=== PATIENT | female | born 1950 | race Caucasian/White ===

== ENCOUNTER 2020-01-30 15:30 | Outpatient (CLI) | payer MEDICARE, SELFPAY ==
--- NOTE | ~2020-01-30 | MM_ITS ---
EXAMINATION: MM screening jose guadalupe BI w han HISTORY: Screening mammogram, family history of breast cancer in her sister. TECHNIQUE: Craniocaudal and mediolateral oblique 3-D tomosynthesis images were obtained and synthetic 2-D images were generated. CAD analysis was submitted and interpreted. COMPARISON: 07/31/2018, 05/15/2017, 05/12/2016 BREAST PARENCHYMAL COMPOSITION: There are scattered areas of fibroglandular density. FINDINGS: There is no evidence of suspicious mass, calcification, or architectural distortion to sugg est malignancy in either breast. There has been no suspicious interval change. IMPRESSION: 1. No mammographic evidence of malignancy. 2. Recommend routine screening mammography in one year. BI-RADS Category 1: Negative Reviewed, dictated and finalized at location A.
== END 2020-01-30 15:31 | disposition home or self-care (01) ==
LOC: ANHIMG 15:34
PROVIDERS: PCP Physician Assistant; Visit Provider Obstetrics & Gynecology
DX: Z12.31 Encounter for screening mammogram for malignant neoplasm of breast (principal)
CPT/HCPCS: 77063; 77067

== ENCOUNTER 2020-08-13 08:18 | Outpatient (CLI) | payer MEDICARE, SELFPAY ==
[2020-08-13 08:46] LABS: Hematocrit 38.6 % (37.0-47.0); Hemoglobin 12.7 g/dL (12.0-15.0); Mean Corpuscular HGB Conc 32.9 g/dl (32-36); Mean Corpuscular Hemoglobin 30.7 pg (26-34); Mean Corpuscular Volume 93.2 fl (80-100); Mean Platelet Volume 10.7 fl (7.4-10.4); Platelet Count Result 168 k/mm3 (150-375); Red Blood Count 4.14 M/mm3 (4.2-5.4); Red Cell Distribution Width 13.4 % (11.5-14.5); White Blood Count 5.8 K/mm3 (4.5-10.0)
[2020-08-13 09:37] LABS: Vitamin D 25 Hydroxy 31.5 ng/mL
[2020-08-13 10:15] LABS: Alanine Aminotransferase 15 U/L (4-35); Albumin Level 4.1 g/dL (3.5-5.1); Alkaline Phosphatase 101 U/L (38-126); Anion Gap 5 mmol/L (8-16); Aspartate Amino Transferase 23 U/L (14-36); Bilirubin,Total 0.4 mg/dL (0.2-1.3); Blood Urea Nitrogen 18 mg/dL (7-17); Carbon Dioxide 28 mmol/L (22-30); Chloride 107 mmol/L (98-107); Cholesterol 180 mg/dL (0-200); Estimated Glomerular Filt Rate > 60; Glucose 103 mg/dL (65-105); HDL Direct 54 mg/dL; Sodium 140 mmol/L (137-145); Triglycerides 81 mg/dL (<150)
[2020-08-13 10:26] LABS: LDL Cholesterol Direct 94 mg/dL
[2020-08-13 11:33] LABS: Folic Acid 17.7 ng/mL (2.76->20)
== END 2020-08-13 08:19 | disposition home or self-care (01) ==
PROVIDERS: PCP Physician Assistant; Visit Provider Physician Assistant
DX: I10 Essential (primary) hypertension (principal); R53.83 Other fatigue; E55.9 Vitamin D deficiency, unspecified; E66.9 Obesity, unspecified
CPT/HCPCS: 36415; 80053; 80061; 82306; 82607; 82746; 84443; 85027

== ENCOUNTER → 2020-10-01 09:38 | Outpatient (CLI) | payer MEDICARE, SELFPAY ==
[2020-10-02 19:00] LABS: SARS-CoV-2 RNA PCR Negative
== END ==
PROVIDERS: PCP Physician Assistant; Visit Provider Physician Assistant
DX: Z20.822 Contact with and (suspected) exposure to COVID-19 (principal); R68.89 Other general symptoms and signs
CPT/HCPCS: C9803; U0003; U0005

== ENCOUNTER 2021-02-01 10:25 | Outpatient (CLI) | payer MEDICARE, SELFPAY ==
--- NOTE | ~2021-02-01 | MM_ITS ---
EXAMINATION: MM screening jose guadalupe BI w han HISTORY: Screening mammogram, family history of breast cancer in her sister. TECHNIQUE: Craniocaudal and mediolateral oblique 3-D tomosynthesis images were obtained and synthetic 2-D images were generated. CAD analysis was submitted and interpreted. COMPARISON: 01/30/2020, 08/10/2018, 05/15/2017 BREAST PARENCHYMAL COMPOSITION: There are scattered areas of fibroglandular density. FINDINGS: There is no evidence of suspicious mass, calcification, or architectural distortion to sugg est malignancy in either breast. There has been no suspicious interval change. IMPRESSION: 1. No mammographic evidence of malignancy. 2. Recommend routine screening mammography in one year. BI-RADS Category 1: Negative Reviewed, dictated and finalized at location A.
== END 2021-02-01 10:26 | disposition home or self-care (01) ==
LOC: ANHIMG 10:31
PROVIDERS: PCP Physician Assistant; Visit Provider Obstetrics & Gynecology
DX: Z12.31 Encounter for screening mammogram for malignant neoplasm of breast (principal)
CPT/HCPCS: 77063; 77067

== ENCOUNTER 2021-06-10 10:14 | Outpatient (CLI) | payer MEDICARE, SELFPAY ==
[2021-06-10 11:16] LABS: Alanine Aminotransferase 15 U/L (4-35); Albumin Level 4.4 g/dL (3.5-5.1); Alkaline Phosphatase 108 U/L (38-126); Anion Gap 8 mmol/L (8-16); Aspartate Amino Transferase 21 U/L (14-36); Bilirubin,Total 0.3 mg/dL (0.2-1.3); Blood Urea Nitrogen 23 mg/dL (7-17); Calcium 9.4 mg/dL (8.4-10.2); Carbon Dioxide 29 mmol/L (22-30); Chloride 106 mmol/L (98-107); Estimated Glomerular Filt Rate > 60; Glucose 99 mg/dL (65-110); Potassium 4.4 mmol/L (3.4-5.0); Sodium 143 mmol/L (137-145)
== END 2021-06-10 10:15 | disposition home or self-care (01) ==
PROVIDERS: PCP Physician Assistant; Visit Provider Physician Assistant
DX: R21 Rash and other nonspecific skin eruption (principal)
CPT/HCPCS: 36415; 80053

== ENCOUNTER 2021-11-23 07:46 | Outpatient (CLI) | payer MEDICARE, SELFPAY ==
[2021-11-23 08:12] LABS: Hematocrit 33.7 % (37.0-47.0); Hemoglobin 10.8 g/dL (12.0-15.0); Mean Corpuscular Hemoglobin 30.3 pg (26-34); Mean Corpuscular Volume 94.4 fl (80-100); Mean Platelet Volume 9.9 fl (7.4-10.4); Platelet Count Result 245 k/mm3 (150-375); Red Blood Count 3.57 M/mm3 (4.2-5.4); Red Cell Distribution Width 13.2 % (11.5-14.5); White Blood Count 7.9 K/mm3 (4.5-10.0)
[2021-11-23 08:22] LABS: Alanine Aminotransferase 15 U/L (4-35); Albumin Level 4.3 g/dL (3.5-5.1); Alkaline Phosphatase 102 U/L (38-126); Anion Gap 6 mmol/L (8-16); Aspartate Amino Transferase 26 U/L (14-36); Bilirubin,Total 0.2 mg/dL (0.2-1.3); Blood Urea Nitrogen 17 mg/dL (7-17); Calcium 8.6 mg/dL (8.4-10.2); Carbon Dioxide 27 mmol/L (22-30); Chloride 106 mmol/L (98-107); Cholesterol 171 mg/dL (0-200); Estimated Glomerular Filt Rate > 60; Glucose 113 mg/dL (65-110); HDL Direct 46 mg/dL; Potassium 3.9 mmol/L (3.4-5.0); Sodium 139 mmol/L (137-145); Triglycerides 80 mg/dL (<150)
[2021-11-23 08:33] LABS: LDL Cholesterol Direct 80 mg/dL
[2021-11-23 09:30] LABS: Folic Acid 13.9 ng/mL (2.76->20)
[2021-11-23 10:09] LABS: Vitamin D 25 Hydroxy 62.6 ng/mL
== END 2021-11-23 07:47 | disposition home or self-care (01) ==
LOC: ANHLAB 07:49
PROVIDERS: PCP Physician Assistant; Visit Provider Physician Assistant
DX: E78.5 Hyperlipidemia, unspecified (principal); R53.83 Other fatigue; E55.9 Vitamin D deficiency, unspecified
CPT/HCPCS: 36415; 80053; 80061; 82306; 82607; 82746; 84443; 85027

== ENCOUNTER 2022-05-03 09:51 | Outpatient (CLI) | payer MEDICARE, SELFPAY ==
--- NOTE | ~2022-05-03 | MM_ITS ---
EXAMINATION: MM screening jose guadalupe BI w han HISTORY: Screening TECHNIQUE: Craniocaudal and mediolateral oblique 3-D tomosynthesis images were obtained and synthetic 2-D images were generated. CAD analysis was submitted and interpreted. COMPARISON: Comparison to multiple prior studies sequentially, with oldest reviewed study dated 04/23. BREAST PARENCHYMAL COMPOSITION: Breast composed of scattered areas of fibroglandular density FINDINGS: There is no evidence of suspicious mass, calcification, or architectural distortion to sugg est malignancy in either breast. There has been no suspicious interval change. IMPRESSION: 1. No mammographic evidence of malignancy. 2. Recommend routine screening mammography in one year. BI-RADS Category 1: Negative Reviewed, dictated and finalized at location A.
== END 2022-05-03 09:52 | disposition home or self-care (01) ==
PROVIDERS: PCP Physician Assistant; Visit Provider Obstetrics & Gynecology
DX: Z12.31 Encounter for screening mammogram for malignant neoplasm of breast (principal)
CPT/HCPCS: 77063; 77067

== ENCOUNTER 2022-08-25 12:35 | Outpatient (CLI) | payer MEDICARE, SELFPAY ==
--- NOTE | ~2022-08-25 | DEXA_ITS ---
Bone Density Report Name: KIRSTEN GONZALEZ Age: 71 Sex: Female Ethnicity: White Date of : 1950 Indication: postmenopausal; screening for osteoporosis; inflammatory bowel disease; history of glucocorticoids; prior fracture; hysterectomy; secondary osteoporosis; Referring Provider: BETHANY RENDON Study: Bone densitometry was performed. Exam Date: August 25, 2022 Accession number: [id number] Bone Density: Region BMD T-score Z-score Classification AP Spine(L1-L4) 1.007 -0.4 2.0 Normal Femoral Neck (Left) 0.681 -1.5 0.5 Osteopenia Total Hip (Left) 0.797 -1.2 0.5 Osteopenia Femoral Neck (Right) 0.690 -1.4 0.6 Osteopenia Total Hip (Right) 0.847 -0.8 0.9 Normal Total Hip Mean 0.822 -1.0 0.7 Normal World Health Organization criteria for BMD impression classify patients as: Normal (T-score at or above -1.0), Osteopenia (T-score between -1.0 and -2.5), or Osteoporosis (T-score at or below -2.5). 10-year Fracture Risk(1): Major Osteoporotic Fracture 25% Hip Fracture 5.0% Reported Risk Factors: [place] (), Neck BMD=0.681, BMI=30.2, previous fracture, glucocorticoids, secondary osteoporosis (1) FRAX(R) Version 3.08. Fracture probability calculated for an untreated patient. Fracture probability may be lower if the patient has received treatment. Clinical Information Provided by Patient: Has had a low trauma fracture Has taken Glucocorticoids Has secondary osteoporosis Has used the following medications: Calcium Has the following medical conditions: Inflammatory bowel diseases, Hysterectomy Patient maximum height was 67.5 Menopause Age: 41 Onset of menses at age 10 Number of children 2 Impression: The patient has low bone mass, based on the Left Femoral Neck T-score. The patient has an estimated ten-year risk of hip fracture of 5% and an estimated ten-year risk of major fracture of 25%, based on the WHO FRAX algorithm. The patient has risk factors, including: previous fracture, history of glucocorticoid therapy. Discussion: BONE DENSITY IS LOW AT ONE OR MORE SKELETAL SITES. THE PATIENT'S BMD AND CLINICAL RISK FACTORS CONTRIBUTE TO THIS PATIENT'S HIGH RISK OF FRACTURE. This patient's lowest T-score is low at one or more skeletal sites. It meets the World Health Organization's (WHO) criteria for ?low bone mass? (T-score between -1.0 and -2.5). The patient's 10-year risk of hip fracture and 10 year risk of a major osteoporotic fracture as calculated by FRAX exceeds the threshold where pharmacological therapy is recommended by the National Osteoporosis Foundation (NOF). However, all treatment decisions require clinical judgment and consideration of individual patient factors, including patient preferences, comorbidities, previous drug use, risk factors not captured in the
== END 2022-08-25 12:36 | disposition home or self-care (01) ==
PROVIDERS: PCP Physician Assistant; Visit Provider Physician Assistant
DX: M85.80 Other specified disorders of bone density and structure, unspecified site (principal); Z78.0 Asymptomatic menopausal state; Z90.710 Acquired absence of both cervix and uterus
CPT/HCPCS: 77080

== ENCOUNTER 2022-10-18 14:24 | Outpatient (CLI) | payer MEDICARE, SELFPAY ==
--- NOTE | ~2022-10-18 | XR_ITS ---
EXAMINATION:XR cervical spine 4-5V DATE: 10/18/2022 14:43 INDICATION: Neck pain TECHNIQUE: AP, lateral, lateral swimmers and odontoid views of the cervical spine are provided. COMPARISON: None FINDINGS: Alignment is normal. The odontoid process is intact. No fracture is identified. The vertebr al body heights are maintained. There is mild loss of intervertebral disc space height throughout the cervical spine. There is multilevel severe facet and uncovertebral joint osteoarthritis. Prevertebra l soft tissues are normal. IMPRESSION: 1. Moderate cervical spondylosis without acute findings. Reviewed, dictated and finalized at location F.
== END 2022-10-18 14:25 | disposition home or self-care (01) ==
PROVIDERS: PCP Physician Assistant; Visit Provider Physician Assistant
DX: M47.892 Other spondylosis, cervical region (principal)
CPT/HCPCS: 72050

== ENCOUNTER 2022-10-25 10:20 | Outpatient (CLI) | payer MEDICARE, SELFPAY ==
--- NOTE | ~2022-10-25 | US_ITS ---
EXAMINATION: US thyroid DATE: 10/25/2022 11:01 INDICATION: Disorder of thyroid, unspecified. TECHNIQUE: Multiple ultrasound images of the thyroid were obtained. COMPARISON: None. FINDINGS: The right thyroid lobe measures 3.7 x 1.7 x 1.3 cm. The left thyroid lobe measures 5.0 x 2.3 x 1.6 c m. The thyroid is diffusely heterogeneous and hypoechoic. Vascularity is increased. In the left thyr oid lobe, there is a 1.2 cm solid, hypoechoic, wider than tall nodule with smooth margin without echo genic foci (TI-RADS TR4). IMPRESSION: 1. 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 2. Left thyroid nodule. Consider thyroid ultrasound in one year. Reviewed, dictated and finalized at location A.
== END 2022-10-25 10:21 | disposition home or self-care (01) ==
LOC: ANHIMG 10:21
PROVIDERS: PCP Physician Assistant; Visit Provider Physician Assistant
DX: E07.9 Disorder of thyroid, unspecified (principal); E04.1 Nontoxic single thyroid nodule
CPT/HCPCS: 76536

== ENCOUNTER 2022-12-08 08:00 | Outpatient (CLI) | payer MEDICARE, SELFPAY ==
[2022-12-08 09:03] LABS: Basophils Percent Auto 0.6 % (0.2-1.2); Eosinophils Absolute Auto 0.1 K/mm3 (0-0.3); Eosinophils Percent Auto 2.3 % (0-4.4); Hemoglobin 11.2 g/dL (12.0-15.0); Immature Granulocyte Absolute 0.02 K/mm3 (0.00-0.031); Immature Granulocyte Percent A 0.4 % (0-0.5); Lymphocytes Absolute Auto 1.11 K/mm3 (0.9-3.2); Lymphocytes Percent Auto 23.6 % (18.3-44.2); Mean Corpuscular Hemoglobin 29.2 pg (26-34); Mean Corpuscular Volume 91.1 fl (80-100); Mean Platelet Volume 10.8 fl (7.4-10.4); Monocytes Absolute Auto 0.4 K/mm3 (0.1-0.6); Monocytes Percent Auto 9.4 % (2.6-8.5); Neutrophils Percent Auto 63.7 % (45.5-73.1); Platelet Count Result 172 k/mm3 (150-375); Red Blood Count 3.84 M/mm3 (4.2-5.4); Red Cell Distribution Width 14.9 % (11.5-14.5); White Blood Count 4.7 K/mm3 (4.5-10.0)
[2022-12-08 09:20] LABS: Alanine Aminotransferase 22 U/L (6-35); Albumin Level 4.4 g/dL (3.5-5.1); Alkaline Phosphatase 109 U/L (38-126); Anion Gap 7 mmol/L (8-16); Aspartate Amino Transferase 29 U/L (14-36); Bilirubin,Total 0.5 mg/dL (0.2-1.3); Blood Urea Nitrogen 18 mg/dL (7-17); Calcium 8.7 mg/dL (8.4-10.2); Carbon Dioxide 29 mmol/L (22-30); Chloride 104 mmol/L (98-107); Cholesterol 194 mg/dL (0-200); Estimated Glomerular Filt Rate > 60; Glucose 101 mg/dL (65-110); HDL Direct 59 mg/dL; Potassium 3.8 mmol/L (3.4-5.0); Sodium 140 mmol/L (137-145); Triglycerides 99 mg/dL (<150)
[2022-12-08 09:31] LABS: LDL Cholesterol Direct 98 mg/dL
[2022-12-08 09:31] LABS: Rheumatoid Factor < 12.0 IU/ML (<12)
[2022-12-08 10:22] LABS: Folic Acid 9.9 ng/mL (2.76->20)
[2022-12-08 10:52] LABS: Erythrocyte Sedimentation Rate 37 mm/hr (0-20)
== END 2022-12-08 08:01 | disposition home or self-care (01) ==
PROVIDERS: PCP Physician Assistant; Visit Provider Physician Assistant
DX: M25.50 Pain in unspecified joint (principal); R53.83 Other fatigue; E78.5 Hyperlipidemia, unspecified; E55.9 Vitamin D deficiency, unspecified
CPT/HCPCS: 36415; 80053; 80061; 82306; 82607; 82746; 84443; 85025; 85652; 86038; 86430

== ENCOUNTER 2023-01-11 15:29 | Outpatient (CLI) | payer MEDICARE, SELFPAY ==
[2023-01-11 16:32] LABS: Alanine Aminotransferase 459 U/L (6-35); Aspartate Amino Transferase 293 U/L (14-36)
== END 2023-01-11 15:30 | disposition home or self-care (01) ==
PROVIDERS: PCP Physician Assistant; Visit Provider Podiatrist Foot & Ankle Surgery
DX: B35.1 Tinea unguium (principal)
CPT/HCPCS: 36415; 84450; 84460

== ENCOUNTER 2023-01-12 09:03 | Outpatient (CLI) | payer MEDICARE, SELFPAY ==
--- NOTE | ~2023-01-12 | NM_ITS ---
EXAMINATION: NM matilda stress w perfusion DATE: 01/12/2023 11:29 INDICATION: Dyspnea on exertion. Fatigue. TECHNIQUE: Rest images were obtained following intravenous administration of 10.5 mCi Tc99m tetrofosm in (Myoview). The patient was infused intravenously with Lexiscan (Regadenoson). Then, 34.3 mCi Tc99m tetrofosmin (Myoview) was administered intravenously, and stress images were obtained in supine posi tion. Additional repeat post stress images were obtained in the prone position. Data was reconstructe d into short axis and horizontal and vertical long axis SPECT images. Gated SPECT images were also ob tained. COMPARISON: None. FINDINGS: Small region of mild reversible decreased perfusion at the junction of the apical, apical a nterior and apical septal segments on prone imaging. No definitive perfusion defects on the rest imag ing to suggest infarct. There is normal left ventricular chamber size, wall motion and ejection fract ion. Left ventricular ejection fraction measures 61%. IMPRESSION: 1. Small region of mild reversible ischemia at the junction of the apical, apical anterior and apical septal segments. 2. Left ventricular ejection fraction measuring 61%. Reviewed, dictated and finalized at location A. IMPRESSION: 1. Small region of mild reversible ischemia at the junction of the apical, apic al anterior and apical septal segments. 2. Left ventricular ejection fraction measuring 61%.
--- NOTE | 2023-01-12 09:44 | EST_ITS ---
Patient Info Name: Krystin Dowd Age: 72 years : 1950 Gender: Female Ht: 67 in Wt: 185 lbs BSA: 2.01 m2 HR: 58 bpm BP: 153 / 74 mmHg Exam Date: 01/12/2023 10:10 AM Exam Location: [facility] Stress Patient Status: Outpatient Admit Date: 01/12/2023 Staff Ordering Physician: Fernando Headley PA-C Attending Provider: Fernando Headley PA-C Exercise Technologist: Ana Carnes CT Exercise Physician: Ramón Ceron DO Exam Type: CA stress matilda w NM Study Info Indications R07.89 - Other chest pain A regadenoson stress test was performed. Summary 1. 1. Abnormal lexiscan stress test for ischemic ST changes by ECG criteria. 2. 2. Baseline hypertension. 3. 3. Nuclear scan to follow and will be reported separately. Please correlate with it. 4. 4. Patient informed of the above results. Protocol: Lexiscan Stress ECG Details Stage: REST Duration (min): 1 min : 19 sec HR (bpm): 58 SBP (mmHg): 153 DBP (mmHg): 74 Stage: REST Duration (min): 6 min : 2 sec HR (bpm): 58 SBP (mmHg): 153 DBP (mmHg): 74 Stage: STAGE 1 Duration (min): 1 min : 0 sec HR (bpm): 89 SBP (mmHg): 153 DBP (mmHg): 56 Stage: RECOVERY Duration (min): 1 min : 0 sec HR (bpm): 99 SBP (mmHg): 153 DBP (mmHg): 56 Stage: RECOVERY Duration (min): 2 min : 0 sec HR (bpm): 101 SBP (mmHg): 153 DBP (mmHg): 56 Stage: RECOVERY Duration (min): 3 min : 0 sec HR (bpm): 97 SBP (mmHg): 172 DBP (mmHg): 64 Stage: RECOVERY Duration (min): 3 min : 7 sec HR (bpm): 96 SBP (mmHg): 172 DBP (mmHg): 64 Rest HR: 58 bpm Peak HR: 102 bpm Rest Sys BP: 153 mmHg Peak Sys BP: 172 mmHg Max Pred HR: 146 bpm % Max Pred HR: 70 % Target HR: 124 bpm Max RPP: 17,544 bpm*mmHg Termination Reason: Completed protocol Cardiac Symptoms: Shortness of breath, Stomach discomfort Total Time: 1 min : 0 sec Rest Pulido BP: 74 mmHg Peak Pulido BP: 64 mmHg Total Dose: 0.4 mg Resting ECG Sinus rhythm. Stress ECG Sagging [address] depression in leads I, avL, V3-V6. Arrhythmias None. Report Signatures
== END 2023-01-12 09:04 | disposition home or self-care (01) ==
PROVIDERS: PCP Physician Assistant; Visit Provider Physician Assistant
DX: R06.02 Shortness of breath (principal); R53.83 Other fatigue
CPT/HCPCS: 78452; 93017; A9502; J2785

== ENCOUNTER 2023-01-13 08:09 | Outpatient (CLI) | payer MEDICARE, SELFPAY ==
[2023-01-13 09:09] LABS: Alanine Aminotransferase 458 U/L (6-35); Aspartate Amino Transferase 273 U/L (14-36)
== END 2023-01-13 08:10 | disposition home or self-care (01) ==
PROVIDERS: PCP Physician Assistant; Visit Provider Podiatrist Foot & Ankle Surgery
DX: B35.1 Tinea unguium (principal)
CPT/HCPCS: 36415; 84450; 84460

== ENCOUNTER 2023-01-31 10:26 | Outpatient (CLI) | payer MEDICARE, SELFPAY ==
--- NOTE | 2023-01-31 10:48 | ECG_ITS ---
Measurements Intervals Greer Rate: 57 P: 41 NJ: 165 QRS: 29 QRSD: 101 T: 70 QT: 447 QTc: 438 Interpretive Statements SINUS BRADYCARDIA BASELINE WANDER- I, II, AVR, AVL, AVF, V1-V2 BORDERLINE ECG NO PREVIOUS ECG AVAILABLE FOR COMPARISON Electronically Signed On 01-31-2023 11:43:17 CDT by Ramón Ceron D.O.
== END 2023-01-31 10:27 | disposition home or self-care (01) ==
PROVIDERS: PCP Physician Assistant; Visit Provider Internal Medicine Cardiovascular Disease
DX: R06.09 Other forms of dyspnea (principal); R94.31 Abnormal electrocardiogram [ECG] [EKG]
CPT/HCPCS: 93005

== ENCOUNTER 2023-02-06 06:33 | Outpatient (CLI) | payer MEDICARE, SELFPAY ==
--- NOTE | ~2023-02-06 | CT_ITS ---
CT of the Abdomen and Pelvis: Indication: Abnormal LFTs Technique: 2.5 mm axial scans were obtained through the abdomen and pelvis following intravenous adm inistration of 100 cc of Omnipaque 350. Dose reduction technique was used on this scan by utilizing a utomated exposure control and iterative reconstruction technique. The dose-length product (DLP) was 8 74.56 mGy-cm. Findings: Scans through the lung bases are unremarkable. The liver, spleen, pancreas, adrenals and kidneys are within normal limits. Cholecystectomy clips are present. There are atherosclerotic calcifications of the aorta. No lymphadenopathy. No bowel obstruction or bowel wall thickening. There is no evidence to suggest acute appendicitis. Images through the pelvis were performed. Urinary bladder unremarkable. No pelvic mass identified. No ascites. Impression: No significant abnormalities seen. Reviewed, dictated and finalized at [facility]. Impression: No significant abnormalities seen.
[2023-02-06 07:20] LABS: Estimated Glomerular Filt Rate 54
== END 2023-02-06 06:34 | disposition home or self-care (01) ==
PROVIDERS: PCP Physician Assistant; Referring Provider Podiatrist Foot & Ankle Surgery; Visit Provider Physician Assistant
DX: R74.01 Elevation of levels of liver transaminase levels (principal)
CPT/HCPCS: 74177; Q9967

== ENCOUNTER 2023-02-08 07:39 | Outpatient (CLI) | payer MEDICARE, SELFPAY ==
[2023-02-08 08:09] LABS: Alanine Aminotransferase 277 U/L (6-35); Albumin Level 4.4 g/dL (3.5-5.1); Alkaline Phosphatase 125 U/L (38-126); Anion Gap 4 mmol/L (8-16); Aspartate Amino Transferase 144 U/L (14-36); Bilirubin,Total 0.4 mg/dL (0.2-1.3); Blood Urea Nitrogen 21 mg/dL (7-17); Calcium 9.2 mg/dL (8.4-10.2); Carbon Dioxide 31 mmol/L (22-30); Chloride 106 mmol/L (98-107); Estimated Glomerular Filt Rate > 60; Glucose 103 mg/dL (65-110); Potassium 4.4 mmol/L (3.4-5.0); Sodium 141 mmol/L (137-145)
== END 2023-02-08 07:40 | disposition home or self-care (01) ==
PROVIDERS: PCP Physician Assistant; Visit Provider Physician Assistant
DX: R74.01 Elevation of levels of liver transaminase levels (principal)
CPT/HCPCS: 36415; 80053

== ENCOUNTER 2023-03-28 15:10 | Outpatient (CLI) | payer MEDICARE, SELFPAY ==
[2023-03-28 16:19] LABS: Hematocrit 36.1 % (37.0-47.0); Hemoglobin 11.9 g/dL (12.0-15.0); Mean Corpuscular Hemoglobin 30.4 pg (26-34); Mean Corpuscular Volume 92.1 fl (80-100); Mean Platelet Volume 10.9 fl (7.4-10.4); Platelet Count Result 159 k/mm3 (150-375); Red Blood Count 3.92 M/mm3 (4.2-5.4); Red Cell Distribution Width 13.8 % (11.5-14.5); White Blood Count 5.9 K/mm3 (4.5-10.0)
[2023-03-28 16:35] LABS: INR 1.1; Prothrombin Time 14.3 Seconds (11.1-14.7)
[2023-03-28 16:41] LABS: Alanine Aminotransferase 45 U/L (6-35); Albumin Level 4.4 g/dL (3.5-5.1); Alkaline Phosphatase 122 U/L (38-126); Anion Gap 9 mmol/L (8-16); Aspartate Amino Transferase 38 U/L (14-36); Bilirubin,Total 0.4 mg/dL (0.2-1.3); Blood Urea Nitrogen 22 mg/dL (7-17); CRP < 0.5 mg/dL (<1.0); Calcium 8.9 mg/dL (8.4-10.2); Carbon Dioxide 26 mmol/L (22-30); Chloride 103 mmol/L (98-107); Creatine Kinase 57 U/L (30-135); Estimated Glomerular Filt Rate > 60; Glucose 102 mg/dL (65-110); Potassium 3.9 mmol/L (3.4-5.0); Sodium 138 mmol/L (137-145)
[2023-03-28 16:53] LABS: Erythrocyte Sedimentation Rate 31 mm/hr (0-20); Iron 83 ug/dL (37-170)
[2023-03-28 17:03] LABS: Percent Iron Saturation 24 % (20-50)
[2023-03-28 20:08] LABS: Hepatitis B Surface Antigen Negative (Negative)
[2023-03-28 20:13] LABS: HAV RESULT Negative (Negative); Hepatitis B Core IgM Result Negative (Negative)
[2023-03-28 20:25] LABS: Hepatitis C Virus Antibody Negative (Negative)
[2023-04-01 06:05] LABS: GGT 17 U/L (3-65)
[2023-04-01 09:44] LABS: Ceruloplasmin 33 mg/dL (18-53)
[2023-04-01 21:51] LABS: Actin Antibody (IgG) <20 U (<20)
[2023-04-01 22:03] LABS: LKM 1 Antibody <=20.0 U (<=20.0)
[2023-04-03 11:26] LABS: Mitochondrial (M2) Ab (IgG) <=20.0 U (<=20.0)
== END 2023-03-28 15:11 | disposition home or self-care (01) ==
PROVIDERS: PCP Physician Assistant; Visit Provider Nurse Practitioner
DX: R74.01 Elevation of levels of liver transaminase levels (principal); I25.10 Atherosclerotic heart disease of native coronary artery without angina pectoris
CPT/HCPCS: 36415; 80053; 80074; 82104; 82390; 82550; 82728; 82977; 83520; 83540; 83550; 85027; 85610; 85652; 86038; 86039; 86140; 86364; 86376

== ENCOUNTER 2023-04-27 07:28 | Outpatient (CLI) | payer MEDICARE, SELFPAY ==
--- NOTE | ~2023-04-27 | US_ITS ---
US abdomen complete DATE: 04/27/2023 08:25 INDICATION: Elevated liver transaminase TECHNIQUE: Real-time imaging and Doppler analysis of the abdomen COMPARISON: 02/06/2023 CT abdomen pelvis FINDINGS: The gallbladder is surgically absent. Normal hepatopedal portal venous flow direction. No hepatic or pancreatic space-occupying mass lesion is evident. The common bile duct measures 5.7 mm, within normal limits. The abdominal aorta is of normal caliber. Inferior vena cava is unremarkable. No renal mass lesion or hydronephrosis. Splenic size is within normal range. IMPRESSION: Status post cholecystectomy Reviewed, dictated and finalized at Location A. Reviewed, dictated and finalized at location L. IMPRESSION: Status post cholecystectomy
== END 2023-04-27 07:29 | disposition home or self-care (01) ==
LOC: ANHIMG 07:33
PROVIDERS: PCP Physician Assistant; Visit Provider Nurse Practitioner
DX: R74.01 Elevation of levels of liver transaminase levels (principal); Z90.49 Acquired absence of other specified parts of digestive tract
CPT/HCPCS: 76700

== ENCOUNTER 2023-05-05 10:47 | Outpatient (CLI) | payer MEDICARE, SELFPAY ==
[2023-05-05 11:19] LABS: Alanine Aminotransferase 25 U/L (6-35); Albumin Level 4.2 g/dL (3.5-5.1); Alkaline Phosphatase 105 U/L (38-126); Anion Gap 4 mmol/L (8-16); Aspartate Amino Transferase 31 U/L (14-36); Bilirubin,Total 0.5 mg/dL (0.2-1.3); Blood Urea Nitrogen 20 mg/dL (7-17); Calcium 8.9 mg/dL (8.4-10.2); Carbon Dioxide 29 mmol/L (22-30); Chloride 107 mmol/L (98-107); Cholesterol 166 mg/dL (0-200); Estimated Glomerular Filt Rate > 60; Glucose 105 mg/dL (65-110); HDL Direct 61 mg/dL; Potassium 4.2 mmol/L (3.4-5.0); Sodium 140 mmol/L (137-145); Triglycerides 67 mg/dL (<150)
[2023-05-05 11:29] LABS: LDL Cholesterol Direct 72 mg/dL
== END 2023-05-05 10:48 | disposition home or self-care (01) ==
PROVIDERS: PCP Physician Assistant; Visit Provider Internal Medicine Cardiovascular Disease
DX: E78.5 Hyperlipidemia, unspecified (principal)
CPT/HCPCS: 36415; 80053; 80061

== ENCOUNTER 2023-07-10 09:45 | Outpatient (CLI) | payer MEDICARE, SELFPAY ==
[2023-07-10 10:26] LABS: Anion Gap 6 mmol/L (8-16); Blood Urea Nitrogen 30 mg/dL (7-17); Calcium 9.3 mg/dL (8.4-10.2); Carbon Dioxide 27 mmol/L (22-30); Chloride 110 mmol/L (98-107); Estimated Glomerular Filt Rate > 60; Glucose 104 mg/dL (65-110); Magnesium 2.3 mg/dL (1.6-2.3); Potassium 4.2 mmol/L (3.4-5.0); Sodium 143 mmol/L (137-145)
== END 2023-07-10 09:46 | disposition home or self-care (01) ==
PROVIDERS: PCP Physician Assistant; Visit Provider Internal Medicine Cardiovascular Disease
DX: R60.0 Localized edema (principal)
CPT/HCPCS: 36415; 80048; 83735

== ENCOUNTER 2023-11-02 08:30 | Outpatient (RCR) | payer MEDICARE, SELFPAY | END 2023-11-02 23:59 | disposition home or self-care (01) | LOC: ANHCPREHAB 08:30 | PROVIDERS: PCP Physician Assistant; Visit Provider Internal Medicine Cardiovascular Disease | DX: Z95.1 Presence of aortocoronary bypass graft (principal) | CPT/HCPCS: 36415; 80048; 83735; 93798 ==

== ENCOUNTER 2023-11-09 08:30 | Outpatient (RCR) | payer MEDICARE, SELFPAY | END 2024-02-19 07:57 | disposition home or self-care (01) | LOC: ANHCPREHAB 08:30 | PROVIDERS: PCP Physician Assistant; Visit Provider Internal Medicine Cardiovascular Disease | DX: Z95.1 Presence of aortocoronary bypass graft (principal) | CPT/HCPCS: 93798 ==

== ENCOUNTER 2023-12-16 07:55 | Outpatient (CLI) | payer MEDICARE, SELFPAY ==
[2023-12-16 08:48] LABS: Alanine Aminotransferase 17 U/L (6-35); Albumin Level 4.3 g/dL (3.5-5.1); Alkaline Phosphatase 129 U/L (38-126); Anion Gap 7 mmol/L (4-12); Aspartate Amino Transferase 25 U/L (14-36); Bilirubin,Total 0.5 mg/dL (0.2-1.3); Blood Urea Nitrogen 23 mg/dL (7-17); Carbon Dioxide 28 mmol/L (22-30); Chloride 106 mmol/L (98-107); Estimated Glomerular Filt Rate 54; Glucose 121 mg/dL (65-110); Potassium 4.2 mmol/L (3.4-5.0); Sodium 141 mmol/L (137-145)
== END 2023-12-16 07:56 | disposition home or self-care (01) ==
LOC: ANHLAB 07:57
PROVIDERS: PCP Physician Assistant; Visit Provider Physician Assistant
DX: R74.01 Elevation of levels of liver transaminase levels (principal)
CPT/HCPCS: 36415; 80053

== ENCOUNTER 2024-04-05 10:54 | Outpatient (CLI) | payer MEDICARE, SELFPAY ==
--- NOTE | ~2024-04-05 | XR_ITS ---
Clinical Indication: Chronic cough PA and lateral views of the chest: Comparison: 07/02/2018 Findings: The lungs are clear, without evidence of focal consolidation or pleural effusion. Cardiome diastinal silhouette is stable. Bones and soft tissues are unremarkable. Impression: Clear lungs. Reviewed, dictated and finalized at location . Impression: Clear lungs.
[2024-04-05 11:08] LABS: Basophils Percent Auto 0.7 % (0.2-1.2); Eosinophils Absolute Auto 0.1 K/mm3 (0-0.3); Eosinophils Percent Auto 2.1 % (0-4.4); Hemoglobin 10.9 g/dL (12.0-15.0); Immature Granulocyte Absolute 0.01 K/mm3 (0.00-0.031); Immature Granulocyte Percent A 0.2 % (0-0.5); Lymphocytes Absolute Auto 1.43 K/mm3 (0.9-3.2); Lymphocytes Percent Auto 25.6 % (18.3-44.2); Mean Corpuscular HGB Conc 32.1 g/dl (32-36); Mean Corpuscular Hemoglobin 30.2 pg (26-34); Mean Corpuscular Volume 94.2 fl (80-100); Mean Platelet Volume 10.4 fl (7.4-10.4); Monocytes Absolute Auto 0.6 K/mm3 (0.1-0.6); Neutrophils Absolute Auto 3.4 K/mm3 (1.3-6.7); Neutrophils Percent Auto 61.4 % (45.5-73.1); Platelet Count Result 158 k/mm3 (150-375); Red Blood Count 3.61 M/mm3 (4.2-5.4); Red Cell Distribution Width 13.7 % (11.5-14.5); White Blood Count 5.6 K/mm3 (4.5-10.0)
== END 2024-04-05 10:55 | disposition home or self-care (01) ==
LOC: ANHLAB 10:57
PROVIDERS: PCP Physician Assistant; Visit Provider Nurse Practitioner Family
DX: R05.3 Chronic cough (principal)
CPT/HCPCS: 36415; 71046; 85025

== ENCOUNTER 2024-04-15 09:12 | Outpatient (CLI) | payer MEDICARE, SELFPAY ==
--- NOTE | 2024-04-15 11:47 | WPDPFTINT ---
PFT Procedure Performed PFT Procedure Performed Spirometry with Pre/Post Bronchodilator Plethysmography (Lung Vol) Diffusing Cap (DLCO) Flow Vol Loop PFT Interpretation This is a pulmonary function test with pre and post-bronchodilator spirometry, plethysmography and diffusing capacity. The test was performed and results interpreted in accordance with the 2019 and 2005 ATS/ERS Task Force guidelines respectively using the Global Lung Function Initiative-2012 reference equations. Patient demonstrated good effort and cooperation. Reproducibility criteria were met. The quality of the pre bronchodilator spirometry maneuver was Grade A and post bronchodilator spirometry maneuver was Grade A. Findings: Spirometry: The contour the inspiratory and expiratory flow tracing are normal. The pre bronchodilator FVC is 2.77 L, 93% predicted. The pre bronchodilator FEV1 is 2.05 L, 90% predicted. The pre bronchodilator FEV1: FVC ratio 74%. The post bronchodilator FVC is 2.88 L, representing a 4% increase. The post bronchodilator FEV1 is 2.26 L, representing a 10% increase. The post bronchodilator FEV1: FVC ratio 79%. Plethysmography: The total lung capacity is 4.67 L, 85% predicted. The functional residual capacity is 2.38 L, 75% predicted. The residual volume is 1.83 L, 75% predicted. Diffusing capacity: The diffusing capacity unadjusted for hemoglobin and carboxyhemoglobin is 13.4, 63% predicted. The diffusing capacity adjusted for alveolar volume is 3.28, 81% predicted. Impression: The spirometry is normal without evidence of an obstructive abnormality. There is no significant improvement after inhaling a single dose of albuterol. The lung volumes are normal. The diffusing capacity unadjusted for hemoglobin and carboxyhemoglobin is mildly decreased and normalizes when adjusted for alveolar volume. There are no prior studies for comparison
== END 2024-04-15 09:13 | disposition home or self-care (01) ==
PROVIDERS: PCP Physician Assistant; Visit Provider Nurse Practitioner Family
DX: R05.3 Chronic cough (principal)
CPT/HCPCS: 94060; 94726; 94729

== ENCOUNTER 2024-04-17 16:08 | Outpatient (CLI) | payer MEDICARE, SELFPAY ==
[2024-04-19 13:18] LABS: Alternaria alternata IgE <0.10 kU/L; Alternaria alternata IgE Class 0; Aspergillus fumigatus IgE <0.10 kU/L; Bermuda Grass (G2) IgE <0.10 kU/L; Bermuda Grass (G2) IgE Class 0; Cat Dander IgE <0.10 kU/L; Cat Dander IgE Class 0; Cladosporium herbarum IgE <0.10 kU/L; Cladosporium herbarum IgE Clas 0; Cockroach IgE <0.10 kU/L; Cockroach IgE Clas 0; Common Ragweed IgE Class 0; Cottonwood IgE <0.10 kU/L; Dermatophagoides Farinae Class 0; Dermatophagoides Pterony Class 0; Dermatophagoides Pteronyssinus <0.10 kU/L; Dog Dander IgE <0.10 kU/L; Elm (T8) IgE <0.10 kU/L; Elm (T8) IgE Class 0; Hickory/Pecan IgE <0.10 kU/L; Hickory/Pecan IgE Class 0; Immunoglobulin E 57 kU/L (<OR=114); Maple Box Elder IgE Class 0; Mountain Cedar IgE <0.10 kU/L; Mountain Cedar IgE Class 0; Mouse Urine Proteins IgE <0.10 kU/L; Mouse Urine Proteins IgE Class 0; Oak IgE <0.10 kU/L; Peniciliium notatum class 0; Penicillium notatum (M1) IgE <0.10 kU/L; Rough Marsh <0.10 kU/L; Rough Marsh Elder Class 0; Rough Pigweed (W14) IgE <0.10 kU/L; Rough Pigweed (W14) IgE Class 0; Russian Thistle <0.10 kU/L; Sycamore IgE <0.10 kU/L; Sycamore IgE Class 0; Timothy Grass IgE <0.10 kU/L; Timothy Grass IgE Class 0; Walnut Tree IgE <0.10 kU/L; Walnut Tree IgE Class 0; White Ash IgE Class 0; White Mulberry IgE <0.10 kU/L; White Mulberry IgE Class 0
== END 2024-04-17 16:09 | disposition home or self-care (01) ==
LOC: ANHLAB 16:12
PROVIDERS: PCP Physician Assistant; Visit Provider Nurse Practitioner Family
DX: R05.3 Chronic cough (principal); J30.9 Allergic rhinitis, unspecified
CPT/HCPCS: 36415; 82785; 86003

== ENCOUNTER 2024-06-07 07:39 | Outpatient (CLI) | payer MEDICARE, SELFPAY ==
--- NOTE | ~2024-06-07 | MM_ITS ---
EXAMINATION: MM screening jose guadalupe BI w han HISTORY: Screening mammogram, family history of breast cancer in her sister. TECHNIQUE: Craniocaudal and mediolateral oblique 3-D tomosynthesis images were obtained and synthetic 2-D images were generated. CAD analysis was submitted and interpreted. COMPARISON: 05/03/2022, 02/01/2021, 01/30/2020, 07/31/2018 BREAST PARENCHYMAL COMPOSITION:Not Dense. There are scattered areas of fibroglandular density. FINDINGS: No suspicious mass, calcification, or architectural distortion are identified in either ester ast to suggest malignancy. There has been no suspicious interval change. IMPRESSION: No mammographic evidence of malignancy. Recommend routine screening mammography in one year. BI-RADS Category 1: Negative Reviewed, dictated and finalized at location . [employer]
== END 2024-06-07 07:40 | disposition home or self-care (01) ==
LOC: ANHIMG 07:41
PROVIDERS: PCP Physician Assistant; Visit Provider Physician Assistant
DX: Z12.31 Encounter for screening mammogram for malignant neoplasm of breast (principal)
CPT/HCPCS: 77063; 77067

== ENCOUNTER 2024-09-22 08:34 | Emergency (ER) | payer MEDICARE, SELFPAY ==
[2024-09-22 08:46] VITALS: BP 167/62; PULSE 73; RESP 20; TEMP 36.4; O2SAT 100
[2024-09-22 09:07] LABS: Basophils Percent Auto 0.6 % (0.2-1.2); Eosinophils Absolute Auto 0.2 K/mm3 (0-0.3); Eosinophils Percent Auto 3.7 % (0-4.4); Hematocrit 32.7 % (37.0-47.0); Hemoglobin 10.6 g/dL (12.0-15.0); Immature Granulocyte Absolute 0.02 K/mm3 (0.00-0.031); Immature Granulocyte Percent A 0.3 % (0-0.5); Lymphocytes Absolute Auto 1.62 K/mm3 (0.9-3.2); Lymphocytes Percent Auto 25.3 % (18.3-44.2); Mean Corpuscular HGB Conc 32.4 g/dl (32-36); Mean Corpuscular Hemoglobin 29.5 pg (26-34); Mean Corpuscular Volume 91.1 fl (80-100); Mean Platelet Volume 11.2 fl (7.4-10.4); Monocytes Absolute Auto 0.6 K/mm3 (0.1-0.6); Monocytes Percent Auto 9.2 % (2.6-8.5); Neutrophils Absolute Auto 3.9 K/mm3 (1.3-6.7); Neutrophils Percent Auto 60.9 % (45.5-73.1); Platelet Count Result 153 k/mm3 (150-375); Red Blood Count 3.59 M/mm3 (4.2-5.4); Red Cell Distribution Width 14.7 % (11.5-14.5); White Blood Count 6.4 K/mm3 (4.5-10.0)
[2024-09-22 09:13] LABS: INR 1.1; Prothrombin Time 14.8 Seconds (11.1-14.7)
[2024-09-22 09:14] LABS: Partial Thromboplastin Time 34.3 Seconds (22.3-36.8)
[2024-09-22 09:15] LABS: Alanine Aminotransferase 23 U/L (6-35); Albumin Level 4.2 g/dL (3.5-5.1); Alkaline Phosphatase 122 U/L (38-126); Anion Gap 12 mmol/L (4-12); Aspartate Amino Transferase 28 U/L (14-36); Bilirubin,Total 0.5 mg/dL (0.2-1.3); Blood Urea Nitrogen 24 mg/dL (7-17); Calcium 9.3 mg/dL (8.4-10.2); Carbon Dioxide 26 mmol/L (22-30); Chloride 105 mmol/L (98-107); Estimated CRCL calculation 52 ml/min; Estimated Glomerular Filt Rate 57; Glucose 130 mg/dL (65-110); Lipase 94 U/L (23-300); Potassium 3.3 mmol/L (3.4-5.0); Sodium 143 mmol/L (137-145)
[2024-09-22 09:24] LABS: Troponin I < 0.012 ng/mL (0.000-0.034)
[2024-09-22] MEDS: ASPIRIN 81 MG CHEWABLE TABLET 324 MG PO (09:28)
[2024-09-22] MEDS: KETOROLAC 15 MG/ML VIAL (*BKC) IV PUSH (09:29)
[2024-09-22 10:26] VITALS: BP 124/49; PULSE 61; RESP 16; O2SAT 97
[2024-09-22 12:10] LABS: Troponin I < 0.012 ng/mL (0.000-0.034)
--- NOTE | 2024-09-22 12:26 | ED.CHESTPAIN ---
HPI - Chest Pain General Chief Complaint: Chest Pain Stated Complaint: chest pain Time Seen by Provider: 09/22/24 08:46 History of Present Illness HPI narrative: Patient is a 74-year-old female who presents ER with left-sided chest pain. Sharp and pressure. Began upon waking up and has been ongoing for 30 minutes. Worse with direct pressure to her chest and movement. No exertional component. No dyspnea. Patient does have history of anxiety and is feeling anxious now. History of bypass several years ago. Has not found any other modifying factors. Related Data Home Medications ?Medication ?Instructions ?Recorded ?Confirmed ?Last Taken ?Type aspirin 81 mg tablet,delayed 81 mg PO DAILY 06/21/23 06/21/24 Unknown History release (Adult Aspirin Regimen) omeprazole 40 mg capsule,delayed 40 mg PO BID 05/09/24 06/21/24 Unknown History release Allergies Allergy/AdvReac Type Severity Reaction Status Date / Time codeine Allergy Severe panic Verified 06/21/24 11:01 attack, SOB tramadol Allergy Mild Confusion Verified 06/21/24 11:01 ketorolac Allergy Unknown panic Verified 06/21/24 11:01 attack, SOB Opioids - Morphine Analogues Allergy Unknown panic Verified 06/21/24 11:01 attack, SOB strawberry Allergy Unknown rash, hives Verified 06/21/24 11:01 OPIATES Allergy Severe CANT Uncoded 06/21/24 11:01 BREATHE;CHEST TIGHTNESS Review of Systems Review of Systems: All systems reviewed & are unremarkable except as noted in HPI and below Constitutional: Constitutional: Reports no additional constitutional complaints ENT: Reports system reviewed and no additional complaints, except as documented Cardiovascular: Cardiovascular: Reports no additional cardiovascular complaints Respiratory: Respiratory: Reports no additional respiratory complaints Gastrointestinal: Gastrointestinal: Reports no additional gastrointestinal complaints Musculoskeletal: Musculoskeletal: Reports no additional musculoskeletal complaints [facility] Past Medical History Medical History (Updated 09/22/24 @ 12:36 by Chase Bundy MD) Anxiety Hyperlipidemia PAF (paroxysmal atrial fibrillation) Hypertension CAD (coronary artery disease) Pruritus Fatigue Family hx of colon cancer Surgical History Surgical History (Updated 09/22/24 @ 12:29 by Chase Bundy MD) History of cholecystectomy S/P CABG (coronary artery bypass graft) Family History Family History Father Hyperlipidemia Family history of coronary artery disease Heart attack Diabetes mellitus Mother Hyperlipidemia Cerebrovascular accident Sibling Hypertension Heart attack Cancer Other Carcinoma of colon Family history of cardiovascular disease Family history of gout Social History Social History Smoking packs per day: 0.25 Smoking cigarettes per day: 5.0 Years smoked: 8 Smoking pack-years: 2.00 Smoking status: Former smoker Tobacco type: cigarettes Second hand tobacco smoke exposure: No Smoking end date: 07/24/1959 Alcohol intake: never Do You Feel Safe in your Home?: Yes Lack of Transportation: No Lack of Food: Never True Current Housing: I Have Housing Concerned About Future Housing: No Difficulty Paying Gas/Electric Bills: No Difficulty Paying for Meds: No Currently Unemployed: No Education: Bachelor's Degree Difficulty w/ Childcare or Family Care: No Exam Narrative: GENERAL: Anxious-appearing, well-nourished, and in no acute distress. HEAD: Normocephalic, atraumatic. EYES: PERRL and EOMI. ENT: Mucous membranes moist. CHEST: Clear to auscultation. No respiratory distress. Tender palpation left chest with the light palpation reproducing patient's pain. HEART: Regular rate and rhythm. Normal peripheral pulses. ABDOMEN: Soft, nontender, nondistended. EXTREMITIES: Normal range of motion. No edema. SKIN: Warm, dry, no rash. NEURO: Alert and oriented x3. PSYCH: Normal mood and affect. Course Course Emergency Course: Pain resolved with Toradol. Troponin negative x2. EKG normal in appearance. Appropriate for discharge home. Pain felt to be musculoskeletal and then also having anxiety in top of that. Discussed with patient's tobacco prizer. Okay for close follow-up. Vital Signs Vital signs: Vital Signs Temperature 97.6 F 09/22/24 08:46 Pulse Rate 73 09/22/24 08:46 Respiratory Rate 20 09/22/24 08:46 Blood Pressure 167/62 H 09/22/24 08:46 Pulse Oximetry 100 09/22/24 08:46 Oxygen Delivery Room Air 09/22/24 08:46 Temperature 97.6 F 09/22/24 08:46 Pulse Rate 61 09/22/24 10:26 Respiratory Rate 16 09/22/24 10:26 Blood Pressure 124/49 L 09/22/24 10:26 Pulse Oximetry 97 03/02/25 10:26 Oxygen Delivery Room Air 09/22/24 08:46 MDM - Chest Pain Lab Data 09/22/24 08:55 09/22/24 08:55 Labs: Lab Results 09/22/24 09/22/24 Range/Units 08:55 11:44 WBC 6.4 (4.5-10.0) K/mm3 RBC 3.59 L (4.2-5.4) M/mm3 Hgb 10.6 L (12.0-15.0) g/dL Hct 32.7 L (37.0-47.0) % MCV 91.1 (80-100) fl MCH 29.5 (26-34) pg MCHC 32.4 (32-36) g/dl RDW 14.7 H (11.5-14.5) % Plt Count 153 (150-375) k/mm3 MPV 11.2 H (7.4-10.4) fl Immature Gran % (Auto) 0.3 (0-0.5) % Neut % (Auto) 60.9 (45.5-73.1) % Lymph % (Auto) 25.3 (18.3-44.2) % Ralls % (Auto) 9.2 H (2.6-8.5) % Eos % (Auto) 3.7 (0-4.4) % Baso % (Auto) 0.6 (0.2-1.2) % Lymph # (Auto) 1.62 (0.9-3.2) K/mm3 Ralls # (Auto) 0.6 (0.1-0.6) K/mm3 Eos # (Auto) 0.2 (0-0.3) K/mm3 Baso # (Auto) 0.0 (0.0-0.1) K/mm3 Abs Immat Gran (auto) 0.02 (0.00-0.031) K/mm3 Absolute Neuts (auto) 3.9 (1.3-6.7) K/mm3 Absolute Nucleated RBC 0.000 (0.0-0.012) K/mm3 Nucleated RBC % 0.0 (0.0-0.2) % PT 14.8 H (11.1-14.7) Seconds INR 1.1 APTT 34.3 (22.3-36.8) Seconds Sodium 143 (137-145) mmol/L Potassium 3.3 L (3.4-5.0) mmol/L Chloride 105 (98-107) mmol/L Carbon Dioxide 26 (22-30) mmol/L Anion Gap 12 (4-12) mmol/L BUN 24 H (7-17) mg/dL Creatinine 0.95 (0.7-1.0) mg/dL Estim Creat Clear Calc 52 ml/min Estimated GFR 57 L (59 - ) Glucose 130 H (65-110) mg/dL Calcium 9.3 (8.4-10.2) mg/dL Total Bilirubin 0.5 (0.2-1.3) mg/dL AST 28 (14-36) U/L ALT 23 (6-35) U/L Alkaline Phosphatase 122 (38-126) U/L Troponin I < 0.012 < 0.012 (0.000-0.034) ng/mL Total Protein 8.0 (6.3-8.2) g/dL Albumin 4.2 (3.5-5.1) g/dL Lipase 94 (23-300) U/L Imaging Data Radiologist's impression: ITS Impressions Chest X-Ray 09/22/24 09:37 Impression: Clear lungs. ECG Data EKG #1: ECG completion date: 09/22/24 ECG completion time: 08:44 EKG Interpretation: normal rate (79), sinus rhythm, no ectopy, non-specific ST changes, normal QRS and NL axis EKG #2: ECG completion date: 09/22/24 ECG completion time: 11:51 EKG Interpretation: normal rate (62), sinus rhythm, non-specific ST changes, normal QRS, normal QT and no acute changes (compared to previous) Discharge Plan Discharge Clinical Impression: Chest pain, musculoskeletal Patient Disposition: Home, Self-Care Condition: Stable Instructions: Chest Wall Pain (ED) Additional Instructions: Please return to the emergency department if you develop severe and persistent chest pain, difficulty breathing, dizziness, leg swelling or if you are coughing up blood as these can be signs of a medical emergency. Please call your doctor for a follow up appointment to determine the need for further testing. Patient Language: Slovak Prescriptions: No Action omeprazole 40 mg capsule,delayed release(DR/EC) 40 mg PO BID aspirin [Adult Aspirin Regimen] 81 mg tablet,delayed release (DR/EC) 81 mg PO DAILY metoprolol succinate 25 mg tablet extended release 24 hr See Rx Instructions .ROUTE .COMPLEX Qty: 45 2RF Dose Instruction: TAKE HALF A TABLET (12.5MG) BY MOUTH ONCE DAILY Rx Instructions: TAKE HALF A TABLET (12.5MG) BY MOUTH ONCE DAILY sertraline 100 mg tablet 100 mg PO DAILY Qty: 90 1RF atorvastatin 40 mg tablet See Rx Instructions .ROUTE .COMPLEX Qty: 90 2RF Dose Instruction: TAKE 1 TABLET BY MOUTH EVERY DAY Rx Instructions: TAKE 1 TABLET BY MOUTH EVERY DAY furosemide 20 mg tablet 20 mg PO DAILY Qty: 30 5RF Follow-up/Referrals: Ramón Ceron DO [Physician] - 1 Week [place],JENARO ColemanC [Primary Care Provider] -
[2024-09-22 12:50] VITALS: BP 139/64; PULSE 67; RESP 18; O2SAT 100
== END 2024-09-22 12:51 | disposition home or self-care (01) ==
PROVIDERS: Emergency Provider Emergency Medicine; PCP Physician Assistant
DX: R07.89 Other chest pain (principal); I48.0 Paroxysmal atrial fibrillation; I10 Essential (primary) hypertension; I25.10 Atherosclerotic heart disease of native coronary artery without angina pectoris; E78.5 Hyperlipidemia, unspecified; F41.9 Anxiety disorder, unspecified; Z87.891 Personal history of nicotine dependence; Z90.49 Acquired absence of other specified parts of digestive tract; R94.31 Abnormal electrocardiogram [ECG] [EKG]
CPT/HCPCS: 36415; 71046; 80053; 83690; 84484; 85025; 85610; 85730; 93005; 96374; 99284; A9270; J1885

== ENCOUNTER 2024-12-28 08:50 | Outpatient (CLI) | payer MEDICARE, SELFPAY ==
[2024-12-28 09:55] LABS: Basophils Percent Auto 0.6 % (0.2-1.2); Eosinophils Absolute Auto 0.2 K/mm3 (0-0.3); Eosinophils Percent Auto 4.1 % (0-4.4); Hematocrit 34.8 % (37.0-47.0); Immature Granulocyte Absolute 0.01 K/mm3 (0.00-0.031); Immature Granulocyte Percent A 0.2 % (0-0.5); Lymphocytes Absolute Auto 1.34 K/mm3 (0.9-3.2); Lymphocytes Percent Auto 26.2 % (18.3-44.2); Mean Corpuscular HGB Conc 31.6 g/dl (32-36); Mean Corpuscular Hemoglobin 29.1 pg (26-34); Mean Corpuscular Volume 92.1 fl (80-100); Mean Platelet Volume 10.9 fl (7.4-10.4); Monocytes Absolute Auto 0.5 K/mm3 (0.1-0.6); Monocytes Percent Auto 8.8 % (2.6-8.5); Neutrophils Absolute Auto 3.1 K/mm3 (1.3-6.7); Neutrophils Percent Auto 60.1 % (45.5-73.1); Platelet Count Result 159 k/mm3 (150-375); Red Blood Count 3.78 M/mm3 (4.2-5.4); Red Cell Distribution Width 14.6 % (11.5-14.5); White Blood Count 5.1 K/mm3 (4.5-10.0)
[2024-12-28 10:03] LABS: Cholesterol 138 mg/dL (0-200); HDL Direct 64 mg/dL; Triglycerides 65 mg/dL (<150)
[2024-12-28 10:05] LABS: Alanine Aminotransferase 17 U/L (6-35); Albumin Level 4.3 g/dL (3.5-5.1); Alkaline Phosphatase 118 U/L (38-126); Anion Gap 8 mmol/L (4-12); Aspartate Amino Transferase 28 U/L (14-36); Bilirubin,Total 0.4 mg/dL (0.2-1.3); Blood Urea Nitrogen 23 mg/dL (7-17); Calcium 9.1 mg/dL (8.4-10.2); Carbon Dioxide 26 mmol/L (22-30); Chloride 108 mmol/L (98-107); Estimated Glomerular Filt Rate 59; Glucose 106 mg/dL (65-110); Potassium 3.9 mmol/L (3.4-5.0); Sodium 142 mmol/L (137-145); Total Protein 7.6 g/dL (6.3-8.2)
[2024-12-28 10:16] LABS: LDL Cholesterol Direct 39 mg/dL
[2024-12-28 10:21] LABS: Vitamin D 25 Hydroxy 26.9 ng/mL
== END 2024-12-28 08:51 | disposition home or self-care (01) ==
PROVIDERS: PCP Internal Medicine; Visit Provider Internal Medicine Cardiovascular Disease
DX: E78.5 Hyperlipidemia, unspecified (principal); R53.83 Other fatigue; I10 Essential (primary) hypertension; E55.9 Vitamin D deficiency, unspecified; I25.810 Atherosclerosis of coronary artery bypass graft(s) without angina pectoris; M25.50 Pain in unspecified joint
CPT/HCPCS: 36415; 80053; 80061; 82306; 84443; 85025

== ENCOUNTER 2025-07-07 11:29 | Outpatient (CLI) | payer MEDICARE, SELFPAY ==
[2025-07-07 12:27] LABS: Cholesterol 138 mg/dL (0-200); HDL Direct 67 mg/dL; Triglycerides 86 mg/dL (<150)
[2025-07-07 12:45] LABS: Free T4 Free Thyroxine 0.95 ng/dL (0.78-2.19)
[2025-07-07 13:02] LABS: Thyroid Stimulating Hormone 2.130 uIU/mL (0.465-4.680)
== END 2025-07-07 11:30 | disposition home or self-care (01) ==
PROVIDERS: PCP Internal Medicine; Visit Provider Internal Medicine
DX: E78.5 Hyperlipidemia, unspecified (principal); R53.83 Other fatigue; E55.9 Vitamin D deficiency, unspecified
CPT/HCPCS: 36415; 80061; 82306; 84439; 84443